=== PATIENT | female | born 1995 | race Caucasian/White ===

== ENCOUNTER 2017-01-23 20:06 | Emergency (ER) | payer MEDICAID ==
[~2017-01-23] VITALS: Ht 167.6 cm; Wt 81.6 kg
[~2017-01-23 20:06] MED LIST: PREN-385 PO
[2017-01-23 20:55] VITALS: BP 124/73
--- NOTE | 2017-01-23 21:05 | NUR ---
PT TAKEN TO [facility]
--- NOTE | 2017-01-23 21:10 | NUR ---
PT BIB FAMILY C/O HEADACHE WITH N/V X 1 WK. PT. 16 WKS. NO MEDICAL HX. MIS AB1. PT DENIES ANY TRAUMA. SKIN IS INTACT, PINK/WARM/DRY; AAOX4, PERRL, WITH EVEN AND STEADY GAIT; LUNGS CLEAR BL, BREATHING UNLABORED; HR EVEN AND REGULAR, BL PERIPHERAL PULSES PRESENT; BS ACTIVE X4, NO TENDERNESS TO PALPATION. PT DENIES ANY FEVER, CP, SOB, OR COUGH AT THIS TIME; PT STATES 5/10 PAIN AT THIS TIME; VSS; PATIENT POSITIONED FOR COMFORT; HOB ELEVATED; BEDRAILS UP X2; BED DOWN.
--- NOTE | 2017-01-23 21:58 | NUR ---
Dr. Little evaluating patient
[2017-01-23 22:18] VITALS: BP 115/60
--- NOTE | 2017-01-23 22:22 | NUR ---
Patient discharged with v/s stable. Written and verbal after care instructions given and explained. Patient alert, oriented and verbalized understanding of instructions. Ambulatory with steady gait. All questions addressed prior to discharge. ID band removed. Patient advised to follow up with PMD. Rx of FIORICET [id number] Q8HR/PRN given. Patient educated on indication of medication including possible reaction and side effects. Opportunity to ask questions provided and answered.
== END 2017-01-23 22:22 | disposition home or self-care (01) ==
LOC: MED 20:06
DX: O26.892 Other specified pregnancy related conditions, second trimester (principal); G44.209 Tension-type headache, unspecified, not intractable; R11.0 Nausea; H53.8 Other visual disturbances; Z3A.16 16 weeks gestation of pregnancy; Z79.899 Other long term (current) drug therapy
CPT/HCPCS: 99283